=== PATIENT | female | born 1990 | race Two or more races ===

== ENCOUNTER 2022-11-20 00:19 | Emergency (ER) | payer OTHER ==
[~2022-11-20] VITALS: Ht 147.3 cm; Wt 55.8 kg
== END 2022-11-20 08:13 | disposition home or self-care (01) ==
LOC: ER 00:19
DX: O20.9 Hemorrhage in early pregnancy, unspecified (principal); Z3A.01 Less than 8 weeks gestation of pregnancy; O34.11 Maternal care for benign tumor of corpus uteri, first trimester

== ENCOUNTER 2022-12-15 09:31 | Emergency (ER) | payer OTHER ==
[~2022-12-15] VITALS: Ht 147.3 cm; Wt 53.1 kg
[2022-12-15 10:29] LABS: HEMATOCRIT 38.2 % (36.0-45.00); HEMOGLOBIN 13.5 g/dL (12.0-15.00); MEAN CELL VOLUME 92.7 fL (80.00-100.00); MEAN CORPUSCULAR HEMOGLOBIN 32.7 pg (27.00-32.0); MEAN CORPUSCULAR HGB CONC 35.3 g/dl (32.0-36.0); PLATELET COUNT 298 K/uL (150-450); RED BLOOD COUNT 4.12 M/uL (4.00-6.00); RED CELL DISTRIBUTION WIDTH 14.1 % (11.5-14.5)
[2022-12-15 10:53] LABS: CALCIUM 8.7 mg/dL (8.5-10.1); CREATININE SERUM 0.67 mg/dL (0.55-1.02); GFR 102.66; POTASSIUM 3.3 mEq/L (3.5-5.1)
== END 2022-12-15 15:56 | disposition home or self-care (01) ==
LOC: ER 09:32
PROVIDERS: General Practice
DX: O21.0 Mild hyperemesis gravidarum (principal); Z3A.10 10 weeks gestation of pregnancy; Z91.013 Allergy to seafood

== ENCOUNTER 2023-06-28 10:22 | Inpatient (IN) | payer OTHER ==
[~2023-06-28] VITALS: Ht 144.8 cm; Wt 3.6 kg
[2023-06-28 12:32] LABS: HEMOGLOBIN 13.4 g/dL (12.0-15.00); MEAN CELL VOLUME 94.5 fL (80.00-100.00); MEAN CORPUSCULAR HEMOGLOBIN 32.4 pg (27.00-32.0); MEAN CORPUSCULAR HGB CONC 34.3 g/dl (32.0-36.0); PLATELET COUNT 249 K/uL (150-450); RED BLOOD COUNT 4.12 M/uL (4.00-6.00); RED CELL DISTRIBUTION WIDTH 15.6 % (11.5-14.5)
[2023-06-28 12:52] LABS: INR 0.94; PARTIAL THROMBOPLASTIN TIME 28.1 SECONDS (22.0-34.0)
[2023-06-28 12:53] LABS: PROTHROMBIN TIME 9.9 SECONDS (9.0-11.5)
[2023-06-28 13:31] LABS: ALBUMIN 2.9 gm/dL (3.4-5.0); BILIRUBIN TOTAL 0.42 mg/dL (0.3-1.2); CREATININE SERUM 0.58 mg/dL (0.55-1.02); GFR 120.47; GLOBULINA 3.6 G/DL (2.4-3.5); POTASSIUM 4.14 mEq/L (3.5-5.1); TOTAL PROTEIN 6.5 gm/dL (6.4-8.2)
[2023-07-06] MEDS ORDERED: OBSTETRIX DHA1 EAC1 PO (06:16)
[2023-07-06] MEDS ORDERED: MEPERIDINE HCL/PF 50 MG/ML VIAL IM PRN (09:00)
[2023-07-06] MEDS ORDERED: IBUprofen 400 MG TABLET PO PRN (09:00)
[2023-07-06] MEDS ORDERED: OXYTOCIN 1,000 ML IV SCH (09:00)
[2023-07-06] MEDS ORDERED: CEFAZOLIN SODIUM 1,000 MG VIAL IV ONE (09:45)
[2023-07-06] MEDS ORDERED: OXYTOCIN 10 UNITS/ML VIAL IV ONE (09:45)
[2023-07-06] MEDS ORDERED: CITRIC ACID/SODIUM CITRATE 15 ML BLIST.PACK PO ONE (09:45)
[2023-07-06] MEDS ORDERED: ERYTHROMYCIN BASE 1 GM TUBE OP ONE (09:45)
[2023-07-07] MEDS ORDERED: OxyCODONE HCL/APAP UD (PERCOCET) PO PRN (08:15)
[2023-07-07] MEDS ORDERED: ENOXAPARIN SODIUM 30 MG/0.3 ML SYRINGE SUBCUTANEO SCH (09:00)
[2023-07-07 09:27] LABS: HEMATOCRIT 38.8 % (36.0-45.00); HEMOGLOBIN 13.5 g/dL (12.0-15.00); MEAN CELL VOLUME 95.5 fL (80.00-100.00); MEAN CORPUSCULAR HEMOGLOBIN 33.2 pg (27.00-32.0); MEAN CORPUSCULAR HGB CONC 34.7 g/dl (32.0-36.0); PLATELET COUNT 266 K/uL (150-450); RED BLOOD COUNT 4.06 M/uL (4.00-6.00); RED CELL DISTRIBUTION WIDTH 15.5 % (11.5-14.5)
== END 2023-07-09 15:30 | disposition home or self-care (01) | DRG 785 ==
LOC: OB/GYN 07-06 05:38 → O/R 07-06 05:38 → LDR 07-06 07:00 → OB/GYN 07-06 11:16
PROVIDERS: Obstetrics & Gynecology; ADMIT Obstetrics & Gynecology Maternal & Fetal Medicine; ATTEND Obstetrics & Gynecology Maternal & Fetal Medicine
PROC: 0UB70ZZ Excision of Bilateral Fallopian Tubes, Open Approach (ICD-10-PCS; 2023-07-06)
PROC: 0UB90ZZ Excision of Uterus, Open Approach (ICD-10-PCS; 2023-07-06)
PROC: 0DNW0ZZ Release Peritoneum, Open Approach (ICD-10-PCS; 2023-07-06)
PROC: 4A1HXCZ Monitoring of Products of Conception, Cardiac Rate, External Approach (ICD-10-PCS; 2023-07-06)
PROC: 10D00Z1 Extraction of Products of Conception, Low, Open Approach (ICD-10-PCS; principal; 2023-07-06 07:00)
DX: O34.211 Maternal care for low transverse scar from previous cesarean delivery (principal); O99.892 Other specified diseases and conditions complicating childbirth; N73.6 Female pelvic peritoneal adhesions (postinfective); O34.13 Maternal care for benign tumor of corpus uteri, third trimester; D25.0 Submucous leiomyoma of uterus; Z3A.39 39 weeks gestation of pregnancy; Z37.0 Single live birth; Z30.2 Encounter for sterilization